=== PATIENT | female | born 1965 | race Caucasian/White ===

== ENCOUNTER 2016-11-10 18:03 | Emergency (ER) | payer MEDICAID ==
[~2016-11-10] VITALS: Ht 160 cm; Wt 81.5 kg
[~2016-11-10 18:03] MED LIST: BACI28.34 TOP; NITR-58 PO; PHEN-537 PO
[2016-11-10 18:09] VITALS: Ht 160 cm; Wt 81.5 kg
[2016-11-10 21:31] LABS: URINE BLOOD (Dip) POC Trace-intact (NEGATIVE)
--- NOTE | 2016-11-10 21:41 | ERD ---
ER Documentation Chief Complaint Date/Time DATE: 11/10/16 TIME: 21:39 Chief Complaint RIGHT LOWER ABDOMINAL PAIN RADIATING TO RIGHT LEG X 3 DAYS HPI Patient is a 51-year-old female who presents with gradual onset, constant right lower quadrant abdominal pain radiating to the right flank for 3 months. She states for the last 3 days it has been more severe, and she has had subjective fever. She denies vomiting, diarrhea. She states that she has intermittent constipation. She states that the pain radiates down to her right leg, but has known leg weakness or numbness. No dysuria or hematuria. No vaginal discharge. ROS All systems reviewed and are negative except as per history of present illness. Medications Home Meds Active Scripts Polyethylene Glycol* (Miralax*) 17 Gm Powd.pack, 17 GM PO DAILY, #7 Prov:FERNANDO SAPP MD 11/11/16 Tramadol HCl (Tramadol HCl) 50 Mg Tablet, 50 MG PO Q6, #20 TAB Prov:FERNANDO SAPP MD 11/11/16 Discontinued Scripts Phenazopyridine Hcl* (Pyridium*) 100 Mg Tab, 100 MG PO TID Y for PAIN, #8 TAB Prov:JW TOVAR PA-C 11/01/15 Nitrofurantoin Monohyd Macrocr* (Macrobid*) 100 Mg Capsr, 100 MG PO BID for 7 Days, CAP Prov:JW TOVAR PA-C 11/01/15 Bacitracin* (Bacitracin Zinc Oint*) 28.35 Gm Oint, 1 APPLIC TOP BID, #30 TUB APPLI TO Prov:AUDIE HUNTER PA-C 07/25/15 Nitrofurantoin Monohyd Macrocr* (Macrobid*) 100 Mg Capsr, 100 MG PO BID for 7 Days, CAP Prov:AUDIE HUNTER PA-C 07/25/15 Allergies Allergies: Coded Allergies: No Known Allergy (Unverified , 11/10/16) PMhx/Soc Past medical history: None Past surgical history: Hysterectomy Social history: Denies tobacco or alcohol. History of Surgery: Yes (abdominal hysterectomy) Anesthesia Reaction: No Hx Neurological Disorder: No Hx Respiratory Disorders: No Hx Cardiac Disorders: No Hx Psychiatric Problems: No Hx Miscellaneous Medical Probl: Yes (gastritis) Hx Alcohol Use: No Hx Substance Use: No Hx Tobacco Use: No Smoking Status: Never smoker FmHx Family History: No coronary disease, No diabetes Physical Exam Vitals Vital Signs Date Time Temp Pulse Resp B/P Pulse Ox O2 Delivery O2 Flow Rate FiO2 11/10/16 18:09 98.9 91 16 141/67 100 Physical Exam Const: Alert, no acute distress Head: Atraumatic Eyes: Normal Conjunctiva, no pallor, no icterus ENT: Normal External Ears, Nose and Mouth. Mucous membranes moist Neck: Full range of motion..~ No meningismus. Resp: Clear to auscultation bilaterally, no wheezes, no rales Cardio: Regular rate and rhythm, no murmurs Abd: Soft, mild right lower quadrant tenderness, no guarding, no rebound, no distention Skin: No petechiae or rashes Back: No midline or flank tenderness, no CVA tenderness Ext: No cyanosis, or edema, no pain with ranging of right hip Neur: Awake and alert, cranial nerves II through XII intact bilaterally, strength and sensation full in 4 extremities Psych: Normal Mood and Affect Result Diagram: 11/10/16212511/10/162125 Results 24 hrs Laboratory Tests Test 11/10/16 21:20 11/10/16 21:26 11/10/16 21:33 Urine Color LT. YELLOW Urine Clarity CLEAR Urine pH 6.0 Urine Specific [place] <1.005 Urine Ketones NEGATIVE Urine Nitrite NEGATIVE Urine Bilirubin NEGATIVE Urine Urobilinogen 0.2 E.U./dL Urine Leukocyte Esterase NEGATIVE Urine Hemoglobin NEGATIVE Urine Glucose NEGATIVE% Urine Total Protein NEGATIVE White Blood Count 9.510^3/ul Red Blood Count 4.6910^6/ul Hemoglobin 13.3g/dl Hematocrit 40.9% Mean Corpuscular Volume 87.2fl Mean Corpuscular Hemoglobin 28.4pg Mean Corpuscular Hemoglobin Concent 32.5g/dl Red Cell Distribution Width 14.2% Platelet Count 98734^3/UL Mean Platelet Volume 11.8fl Neutrophils % 45.5% Lymphocytes % 42.3% Monocytes % 9.1% Eosinophils % 2.6% Basophils % 0.2% Nucleated Red Blood Cells % 0.0/100WBC Neutrophils # 4.310^3/ul Lymphocytes # 4.010^3/ul Monocytes # 0.910^3/ul Eosinophils # 0.310^3/ul Basophils # 0.010^3/ul Nucleated Red Blood Cells # 0.010^3/ul Sodium Level 140mmol/L Potassium Level 3.8mmol/L Chloride Level 102mmol/L Carbon Dioxide Level 25mmol/L Anion Gap 17 Blood Urea Nitrogen 15mg/dl Creatinine 0.72mg/dl Glucose Level 105mg/dl Calcium Level 10.0mg/dl Total Bilirubin 0.1mg/dl Direct Bilirubin 0.00mg/dl Indirect Bilirubin 0.1mg/dl Aspartate Amino Transf (AST/SGOT) 23IU/L Alanine Aminotransferase (ALT/SGPT) 33IU/L Alkaline Phosphatase 55IU/L Total Protein 8.8g/dl Albumin 4.7g/dl Globulin 4.10g/dl Albumin/Globulin Ratio 1.14 Lipase 104U/L Bedside Urine pH (LAB) 7.0 Bedside Urine Protein (LAB) Negative Bedside Urine Glucose (UA) Negative Bedside Urine Ketones (LAB) Negative Bedside Urine Blood Trace-intact Bedside Urine Nitrite (LAB) Negative Bedside Urine Leukocyte Esterase (L Negative Current Medications Medications (Trade) Dose Ordered Sig/Clay Route PRN Reason Start Time Stop Time Status Last Admin Dose Admin Morphine Sulfate (morphine) 4 mg ONCE STAT IV 11/10/16 22:15 11/10/16 22:16 DC 11/10/16 22:20 Ondansetron HCl (Zofran Inj) 4 mg ONCE STAT IV 11/10/16 22:15 11/10/16 22:16 DC 11/10/16 22:20 IV Flush 10 ml 10 ml STK-MED ONCE .ROUTE 11/10/16 22:37 11/10/16 22:38 DC 11/10/16 22:49 Sodium Chloride (NS) 100 ml @ ud STK-MED ONCE .ROUTE 11/10/16 22:37 11/10/16 22:38 DC 11/10/16 22:49 Iohexol (Omnipaque 300mg/ ml) 150 ml STK-MED ONCE .ROUTE 11/10/16 22:37 11/10/16 22:38 DC 11/10/16 22:49 Procedures/MDM MDM: Patient is a 51-year-old female who presents with 3 weeks of intermittent right lower quadrant pain radiating to the right flank and right lower extremity. She has a relatively benign exam, normal labs and UA. A CT scan was performed given chronicity of symptoms for now with exacerbation and location in the right lower quadrant. CT scan shows no evidence of appendicitis , kidney stone, or other significant pathology. He does incidentally note bilateral ovarian cysts. The patient is status post hysterectomy. I have low suspicion for intermittent ovarian torsion, and the patient does not have fertility concern given prior hysterectomy. Patient does report intermittent constipation, and I cannot exclude functional abdominal pain. I will discharge her with prescription for tramadol for any severe episodes of pain, as well as MiraLAX for intermittent constipation. I have advised her of her diagnosis of ovarian cysts. I advised her to follow-up with her PMD in the next 2-3 days of her pain is not improving. Advised to return to the ER if she experiences any fever, vomiting or worsening pain. Departure Diagnosis: Primary Impression: Abdominal pain Abdominal location: right lower quadrant Qualified Code: R10.31 - Right lower quadrant abdominal pain Additional Impression: Ovarian cyst Laterality: bilateral Qualified Code: N83.201 - Cysts of both ovaries Condition: Stable FERNANDO SAPP MD November 10, 2016 21:41
[2016-11-10 21:44] LABS: ADD SCAN DIFF NO
[2016-11-10 21:48] LABS: BASOPHILS % 0.2 % (0.0-2.0); EOSINOPHILS # 0.3 10^3/ul (0.0-0.5); EOSINOPHILS % 2.6 % (0.0-7.0); HEMATOCRIT 40.9 % (37.0-47.0); HEMOGLOBIN 13.3 g/dl (12.0-16.0); LYMPHOCYTES % 42.3 % (15.0-51.0); MEAN CORPUSCULAR HEMOGLOBIN 28.4 pg (29.0-33.0); MEAN CORPUSCULAR HGB CONC 32.5 g/dl (32.0-37.0); MEAN CORPUSCULAR VOLUME 87.2 fl (82.0-101.0); MEAN PLATELET VOLUME 11.8 fl (7.4-10.4); MONOCYTE # 0.9 10^3/ul (0.3-0.9); MONOCYTES % 9.1 % (0.0-11.0); NEUTROPHIL # 4.3 10^3/ul (1.6-7.5); NEUTROPHILS % 45.5 % (39.0-77.0); PLATELET COUNT 205 10^3/UL (140-415); RED BLOOD COUNT 4.69 10^6/ul (4.20-5.40); RED CELL DISTRIBUTION WIDTH 14.2 % (11.5-14.5); WHITE BLOOD COUNT 9.5 10^3/ul (4.8-10.8)
[2016-11-10 22:11] LABS: ALBUMIN 4.7 g/dl (3.3-4.9)
[2016-11-10 22:12] LABS: POTASSIUM 3.8 mmol/L (3.5-5.1)
[2016-11-10 22:14] LABS: CREATININE 0.72 mg/dl (0.44-1.00)
[2016-11-10 22:15] LABS: ALBUMIN/GLOBULIN RATIO 1.14; BILIRUBIN,INDIRECT 0.1 mg/dl (0-1.1); BILIRUBIN,TOTAL 0.1 mg/dl (0.2-1.3); TOTAL PROTEIN 8.8 g/dl (6.1-8.1)
[2016-11-10] MEDS ORDERED: ONDANSETRON 4 MG INJ IV STA (22:15)
[2016-11-10] MEDS ORDERED: morphine 4 MG/ML VIAL IV STA (22:15)
[2016-11-10] MEDS ORDERED: SOD CHLORIDE 0.9% 100 ML ONE (22:37)
[2016-11-10] MEDS ORDERED: IOHEXOL 300MG/ML 150 ML BTL ONE (22:37)
--- NOTE | 2016-11-10 23:25 | RADRPT ---
PROCEDURE: CT Abdomen and pelvis with contrast. CLINICAL INDICATION: Abdominal pain. TECHNIQUE: CT scan of the abdomen and pelvis with contrast was performed on a multi-detector high -resolution CT scanner. The patient was scanned following the uncomplicated administration of 90 cc of Omnipaque 300 intravenous contrast. Coronal and sagittal reformatted images were obtained from the axial source images. Images were reviewed on a high-resolution PACS workstation. One or more of the following dose reduction techniques were used: - Automated exposure control. - Adjustment of the mA and/or kV according to patient size. - Use of iterative reconstruction technique. Exam CTD/vol = 15.65 mGy. Total exam DLP = 797.37 mGy-cm. COMPARISON: 02/08/2013. FINDINGS: Evaluation of the lung bases demonstrates no pleural or parenchymal disease. Abdomen: The liver is normal in size. There is no focal mass or dilatation of the biliary tree. T he gallbladder is not distended. The spleen, pancreas and bilateral adrenal glands are within shyam l limits. Bilateral kidneys are normal in size with symmetric enhancement. There is no focal mass, hydronephrosis or hydroureter. There is no retroperitoneal adenopathy. The abdominal aorta is of normal caliber. There is a small umbilical hernia containing fat. There is no abnormal bowel wall thickening or dis tension. There is no bowel obstruction or free air. A normal appendix is identified. There is no diverticulosis or diverticulitis. There is no ascites. Pelvis: The bladder is unremarkable. The uterus is absent. There are multiple left adnexal cysts with the largest measuring 2.8 x 2.2 cm. There are multiple right adnexal cysts with the largest me asuring 1.9 x 2.4 cm. There is no significant pelvic adenopathy or free fluid. Evaluation of the osseous structures demonstrates no suspicious lytic or blastic lesion. IMPRESSION: Bilateral adnexal cysts measuring up to 2.8 cm. Small umbilical hernia containing fat. Otherwise no acute abnormality identified within the abdomen and pelvis. .Arvind Simpson MD, MD Date Time Electronically viewed and signed by .Arvind Simpson MD, MD on 11/10/2016 23:25 .T/
[2016-11-10 23:26] LABS: URINE BILIRUBIN (Dip) NEGATIVE (NEGATIVE); URINE BLOOD (Dip) NEGATIVE (NEGATIVE); URINE COLOR LT. YELLOW (YELLOW); URINE GLUCOSE (Dip) NEGATIVE (NEGATIVE); URINE KETONES (Dip) NEGATIVE (NEGATIVE); URINE NITRITE (Dip) NEGATIVE (NEGATIVE); URINE TOTAL PROTEIN (Dip) NEGATIVE (NEGATIVE); URINE UROBILINOGEN (Dip) 0.2 E.U./dL (0.1-1.0)
[2016-11-10 23:27] LABS: ADD UMIC NO; URINE LEUKOCYTE ESTERASE (Dip) NEGATIVE (NEGATIVE)
[2016-11-11] MEDS ORDERED: POLY17PO6 PO (00:04)
[2016-11-11] MEDS ORDERED: TRAM50TA2 PO (00:04)
[2016-11-11 00:16] VITALS: BP 122/71; PULSE 64; RESP 17; TEMP 98.4
== END 2016-11-11 00:16 | disposition home or self-care (01) ==
LOC: E/R 18:03
DX: R10.31 Right lower quadrant pain (principal); N83.201 Unspecified ovarian cyst, right side; N83.202 Unspecified ovarian cyst, left side
CPT/HCPCS: 74177; 80053; 81003; 83690; 85025; J2270; J2405; Q9967; Z7610

== ENCOUNTER 2016-12-17 20:24 | Emergency (ER) | payer MEDICAID ==
[~2016-12-17] VITALS: Wt 80.0 kg
[~2016-12-17 20:24] MED LIST changes: -BACI28.34 TOP; -NITR-58 PO; -PHEN-537 PO; +POLY17PO6 PO; +TRAM50TA2 PO
--- NOTE | 2016-12-17 22:03 | ERA ---
ER Documentation Chief Complaint Date/Time DATE: 12/17/16 TIME: 21:58 Chief Complaint nausea/generalize body aches/feels hot x 1 month HPI This is a 51-year-old female presenting with a history of anxiety and current anxiety attack. Patient denies wanting to harm herself or others. Patient states that she has been nauseous and she has had some body aches that has been worsening over the past month. Describes the body aches as weakness and heaviness. Patient has no other symptoms at this time. Patient describes palpitations that have been occurring throughout the month occurring approximately once a week. Denies chest pain, shortness of breath, hematuria, dysuria, headache, neck stiffness. Patient has had similar symptoms in the past and has been diagnosed with anxiety/panic disorder. Patient has no other complaints or symptoms at this time. Nursing notes and previous documents have been reviewed and are consistent with the patient's history. ROS All systems reviewed and are negative except as per history of present illness. Medications Home Meds Active Scripts Polyethylene Glycol* (Miralax*) 17 Gm Powd.pack, 17 GM PO DAILY, #7 Prov:FERNANDO SAPP MD 11/11/16 Tramadol HCl (Tramadol HCl) 50 Mg Tablet, 50 MG PO Q6, #20 TAB Prov:FERNANDO SAPP MD 11/11/16 Allergies Allergies: Coded Allergies: No Known Allergy (Unverified , 12/17/16) PMhx/Soc History of Surgery: Yes (abdominal hysterectomy) Anesthesia Reaction: No Hx Neurological Disorder: No Hx Respiratory Disorders: No Hx Cardiac Disorders: No Hx Psychiatric Problems: No Hx Miscellaneous Medical Probl: Yes (gastritis, ovarian cyst) Hx Alcohol Use: No Hx Substance Use: No Hx Tobacco Use: No Smoking Status: Never smoker Physical Exam Vitals Vital Signs Date Time Temp Pulse Resp B/P Pulse Ox O2 Delivery O2 Flow Rate FiO2 12/17/16 20:29 98.3 84 20 138/86 98 Physical Exam Const: Healthy-appearing. Well-nourished. Well-developed. Israeli- speaking only. No acute distress. Head: Normocephalic, Atraumatic. No sinus tenderness. Eyes: Non-injected; No scleral erythema, discharge or foreign body. EOMI and NIK bilaterally. Ears: Normal External Ears, EACs clear, TM normal bilaterally without erythema. Nose: Normal nose without discharge, septal deviation, or sinus tenderness. Oral: No oral edema visualized. Mucous membranes moist and pink. Neck: No cervical lymphadenopathy, masses or goiter palpated. Full range of motion. Supple. Trachea midline. ~ No meningismus. Pulm: Good air movement in upper and lower respiratory tracts. No dyspnea, stridor, tripoding or drooling. Clear to auscultation bilaterally. Percussion unremarkable in all lung siu bilaterally. Cardio: Regular rate and rhythm; No murmurs, gallops or rubs auscultated. No JVD grossly observed. Radial and posterior tibial pulses 2+ bilaterally. No cyanosis. Capillary refill less than 2 seconds. Abd: Soft, non tender, non distended. No guarding, masses. Normal bowel sounds. No McBurney's point tenderness. MS: Normal motor strength, normal tone with gross examination. Skin: No petechiae or rashes. No ulcer, induration, jaundice. Good turgor. Back: No midline, flank or CVA tenderness. Ext: No cyanosis, or edema. Normal movement of all extremities grossly observed. Neur: Awake, alert and oriented x3. Neurovascularly intact bilaterally. Psych: Active and alert. Normal Mood and Affect. Oriented x3. Procedures/MDM This is a 51-year-old female presenting with a chief complaint of body weakness. Patient speaks Israeli and Emmanuelle the RN was the bobbin painter. Patient signs and symptoms are consistent with a panic attack/anxiety disorder. Due to history of palpitations and weakness/heaviness description of fatigue and EKG was taken and read by me. EKG results were the following normal sinus rhythm, normal axis, no T-wave abnormalities no ST-T wave elevations or depressions. EKG was read by my attending Dr. Cunha as unremarkable, normal sinus rhythm. I have no suspicion at this time for the patient to harm herself or others. Patient's current status is stable with stable vitals and her current condition is appropriate for discharge. Patient will be discharged with discharge instructions return precautions. Have spoken with the patient with the help of the bobbin painter and she has verbally agreed that she understands her current condition and management. Departure Diagnosis: Primary Impression: Anxiety Additional Impression: Tension headache Condition: Stable Patient Instructions: Your Body's Response to Anxiety Referrals: JOE,AGUILAR S (PCP) Additional Instructions: Follow up with your PCP within the next 1-3 days for a more thorough evaluation and a possible referral to a specialist. Return the the emergency department immediately if symptoms worsen or change. If you have any questions regarding medications, ask your pharmacist or us before you leave. If any adverse reactions occur while taking your medications, discontinue the treatment and return to the emergency department immediately. Take your medications as directed, and complete the entire course of treatment. GUMARO LINDA PA-C Dec 17, 2016 22:03
== END 2016-12-17 22:05 | disposition home or self-care (01) ==
LOC: FTE 20:24
DX: F41.9 Anxiety disorder, unspecified (principal); G44.209 Tension-type headache, unspecified, not intractable; R00.2 Palpitations
CPT/HCPCS: 93005; Z7502; 99283

== ENCOUNTER 2017-06-20 02:32 | Emergency (ER) | payer MEDICAID ==
[~2017-06-20] VITALS: Ht 165.1 cm; Wt 78.8 kg
[2017-06-20 02:36] VITALS: Ht 165.1 cm; Wt 78.8 kg
[2017-06-20] MEDS ORDERED: IPRATROPIUM (NEB) 0.5 MG/2.5 ML AMP NEB STA (03:08)
[2017-06-20] MEDS ORDERED: ALBUTEROL 0.083% (NEB) 2.5 MG/3 ML AMP NEB STA (03:08)
--- NOTE | 2017-06-20 03:29 | ERD ---
ER Documentation Chief Complaint Chief Complaint coughing & SOB x 2 days HPI 51-year-old female presents here to emergency department for complaints of cough shortness of breath and wheezing for 2 days. Patient has been having dry cough, does not cough up any phlegm or blood. Patient does not have any fever or chills. Patient does not have any sick contacts. Patient does not have any sore throat or ear pain. Patient does not have any sick contacts. She did not take any medications to help with symptoms. ROS All systems reviewed and are negative except as per history of present illness. Medications Home Meds Active Scripts Polyethylene Glycol* (Miralax*) 17 Gm Powd.pack, 17 GM PO DAILY, #7 Prov:FERNANDO SAPP MD 11/11/16 Tramadol HCl (Tramadol HCl) 50 Mg Tablet, 50 MG PO Q6, #20 TAB Prov:FERNANDO SAPP MD 11/11/16 Allergies Allergies: Coded Allergies: No Known Allergy (Unverified , 12/17/16) PMhx/Soc History of Surgery: Yes (abdominal hysterectomy) Anesthesia Reaction: No Hx Neurological Disorder: No Hx Respiratory Disorders: No Hx Cardiac Disorders: No Hx Psychiatric Problems: No Hx Miscellaneous Medical Probl: Yes (gastritis, ovarian cyst) Hx Alcohol Use: No Hx Substance Use: No Hx Tobacco Use: No FmHx Family History: No coronary disease, No diabetes, No other Physical Exam Vitals Vital Signs Date Time Temp Pulse Resp B/P Pulse Ox O2 Delivery O2 Flow Rate FiO2 06/20/17 04:55 97.4 06/20/17 03:22 113 22 97 21 06/20/17 02:36 99.6 102 22 110/63 99 Physical Exam GENERAL: The patient is well developed and appropriate for usual state of health, in no apparent distress. CHEST: Wheezing noted bilateral lungs . There are no rales, or rhonchi. HEART: Regular rate and rhythm. No murmurs, clicks, rubs or gallops. No S3 or S4. ABDOMEN: Soft, nontender and nondistended. Good bowel sounds. No rebound or guarding. No gross peritonitis. No gross organomegaly or masses. No Batista sign or McBurney point tenderness. BACK: No midline or flank tenderness. EXTREMITIES: Equal pulses bilaterally. There is no peripheral clubbing, cyanosis or edema. No focal swelling or erythema. Full range of motion. Grossly neurovascularly intact. NEURO: Alert and oriented. Cranial nerves 2-12 intact. Motor strength in all 4 extremities with 5/5 strength. Sensation grossly intact. Normal speech and gait. SKIN: There is no apparent rash or petechia. The skin is warm and dry. HEMATOLOGIC AND LYMPHATIC: There is no evidence of excessive bruising or lymphedema. No gross cervical, axillary, or inguinal lymphadenopathy. Results 24 hrs Current Medications Medications (Trade) Dose Ordered Sig/Clay Route PRN Reason Start Time Stop Time Status Last Admin Dose Admin Albuterol (Proventil 0.083% (Neb)) 5 mg ONCE STAT NEB 06/20/17 03:08 06/20/17 03:09 DC 06/20/17 03:21 Ipratropium [place] (Atrovent 0.02% (Neb)) 0.5 mg ONCE STAT NEB 06/20/17 03:08 06/20/17 03:09 DC 06/20/17 03:21 Guaifenesin/ Codeine Phosphate (Robitussin Ac Liquid Cup) 10 ml ONCE ONCE PO 06/20/17 03:30 06/20/17 03:31 DC 06/20/17 04:02 Breathing treatment of albuterol and Atrovent guaifenesin with codeine was given here in emergency department, after treatment, patient's lungs sounds are clear and patient's oxygenation is better. Patient verbalized feeling much better. PROCEDURE: XR Chest. CLINICAL INDICATION: Asthma exacerbation TECHNIQUE: AP Portable chest. COMPARISON: CR CHEST 10/21/2013 FINDINGS: The cardiomediastinal silhouette is normal. The aorta is normal. No focal consolidation, pleural effusion or pneumothorax is seen. The osseous structures are intact. IMPRESSION: No radiographic evidence of acute cardiopulmonary disease. Physician Mayur Date Time Electronically viewed and signed by Physician Mayur on 06/20/2017 04: 38 CS/ CC: DERICK ALLEN TIRE BUSTER Procedures/MDM Medical Decision Making: Patient symptoms are most likely consistent with acute bronchitis, which viral in origin. There is low suspicion for Pneumonia at this time since patients lungs sounds are clear, patient O2 saturation is normal and patient doesnt show any respiratory distress. Patients chest xray doesnt show infiltrates or any other cardiopulmonary emergencies at this time. There is low suspicion for other cardiopulmonary emergencies at this time such as CHF, Pulmonary Embolism, Pneumothorax, Aortic Aneurysm or any other cardiopulmonary emergencies at this time. There is low suspicion for sepsis. Patient appears well and is hemodynamically stable. Patient does not have any fever. Disposition: Home. Condition: Stable Prescriptions: Albuterol, guaifenesin with codeine Zyrtec ibuprofen Instructions: Patient is advised to take medications as prescribed. Patient is advised to rest. Patient advised to increase fluid intake, do humidifier at home and if possible, do salt water gargles. Patient is advised that if symptoms are worse, shortness of breath, uncontrolled fever, stridor, vomiting, worst signs and symptoms to return to emergency department immediately. Otherwise, patient is advised to follow up with primary doctor in 5-7 days. Disclaimer: Inadvertent spelling and grammatical errors are likely due to EHR/ dictation software use and do not reflect on the overall quality of patient care. Also, please note that the electronic time recorded on this note does not necessarily reflect the actual time of the patient encounter. Departure Diagnosis: Primary Impression: Acute bronchitis Bronchitis organism: unspecified organism Qualified Code: J20.9 - Acute bronchitis, unspecified organism Condition: Stable Patient Instructions: Bronchitis With Wheezing (Adult) Additional Instructions: Patient is advised to take medications as prescribed. Patient is advised to rest. Patient advised to increase fluid intake, do humidifier at home and if possible, do salt water gargles. Patient is advised that if symptoms are worse, shortness of breath, uncontrolled fever, stridor, vomiting, worst signs and symptoms to return to emergency department immediately. Otherwise, patient is advised to follow up with primary doctor in 5-7 days. DERICK ALLEN NP Jun 20, 2017 03:29
[2017-06-20] MEDS ORDERED: GUAIFENESIN/CODEINE 5ML CUP PO ONE (03:30)
--- NOTE | 2017-06-20 04:38 | RADRPT ---
PROCEDURE: XR Chest. CLINICAL INDICATION: Asthma exacerbation TECHNIQUE: AP Portable chest. COMPARISON: CR CHEST 10/21/2013 FINDINGS: The cardiomediastinal silhouette is normal. The aorta is normal. No focal consolidation, pleural eff usion or pneumothorax is seen. The osseous structures are intact. IMPRESSION: No radiographic evidence of acute cardiopulmonary disease. Physician Mayur Date Time Electronically viewed and signed by Huong Pena Physician on 06/20/2017 04:38 CS/
[2017-06-20 04:55] VITALS: TEMP 97.4
[2017-06-20] MEDS ORDERED: ALBU8.5H3 INH (05:20)
[2017-06-20] MEDS ORDERED: CETI10CA PO (05:20)
[2017-06-20] MEDS ORDERED: GUAI473L22 PO (05:20)
== END 2017-06-20 05:30 | disposition home or self-care (01) ==
LOC: FTE 02:32
DX: J20.9 Acute bronchitis, unspecified (principal)
CPT/HCPCS: 71010; 94664; Z7502; Z7610

== ENCOUNTER 2017-06-23 15:07 | Emergency (ER) | payer MEDICAID ==
[~2017-06-23] VITALS: Ht 160 cm; Wt 79.8 kg
[~2017-06-23 15:07] MED LIST changes: +ALBU8.5H3 INH; +CETI10CA PO; +GUAI473L22 PO
[2017-06-23 15:12] VITALS: Ht 160 cm; Wt 79.8 kg
[2017-06-23] MEDS ORDERED: IBUPROFEN 600 MG TAB PO ONE (17:00)
[2017-06-23] MEDS ORDERED: FAMOTIDINE 20 MG TAB PO ONE (18:00)
--- NOTE | 2017-06-23 18:20 | RADRPT ---
PROCEDURE: X-ray Chest. CLINICAL INDICATION: Cough and dyspnea. TECHNIQUE: Single view chest x-ray. COMPARISON: Exam dated 06/20/2017. FINDINGS: The cardiomediastinal silhouette is within normal limits. The lungs are clear without f ocal consolidation, effusion, or pneumothorax. There are no acute osseous abnormalities. IMPRESSION: 1. No acute cardiopulmonary abnormality. RPTAT: HLBP .Francesco Jolly MD, MD Date Time Electronically viewed and signed by .Francesco Jolly MD, on 06/23/2017 18:20 .P/
[2017-06-23] MEDS ORDERED: OSLT75C PO (18:26)
[2017-06-23] MEDS ORDERED: IBUP-1542 PO (18:26)
[2017-06-23] MEDS ORDERED: TYL500 PO (18:27)
--- NOTE | 2017-06-23 18:36 | ERD ---
ER Documentation Chief Complaint Chief Complaint HERE ON DX BRONCHITIS, STILL NOT FEELING WELL HPI This is a 51-year-old female presents to the ER with continued cough, fever, body aches, headache since Wednesday. Was seen here on Wednesday and diagnosed with bronchitis, she has been taking medication prescribed however she has not gotten better. Patient does admit to shortness of breath secondary to coughing. She denies any chest pain. Patient started experiencing nausea today. She denies any vomiting or diarrhea. Headache is throbbing in quality and located all over her head, this is not the worst headache of her life. She did not get her flu shot. ROS 12 point review of systems was done, all negative except per HPI. Medications Home Meds Active Scripts Acetaminophen* (Tylenol*) 500 Mg Tab, 1000 MG PO Q8 Y for PAIN AND OR ELEVATED TEMP for 3 Days, TAB Prov:JAVIER CONDE 06/23/17 Ibuprofen* (Ibuprofen*) 600 Mg Tablet, 600 MG PO Q6 for 3 Days, TAB Prov:JAVIER CONDE 06/23/17 Oseltamivir Phosphate* (Tamiflu*) 75 Mg Capsule, 75 MG PO BID for 5 Days, CAP Prov:JAVIER CONDE 06/23/17 Cetirizine Hcl* (Zyrtec*) 10 Mg Capsule, 10 MG PO DAILY, #30 TAB.CHEW Prov:DERICK ALLEN NP 06/20/17 Cetirizine Hcl* (Zyrtec*) 10 Mg Capsule, 10 MG PO DAILY, #30 TAB.CHEW Prov:DERICK ALLEN NP 06/20/17 Guaifenesin-Codeine Phosphate* (Guaifenesin* AC Cough Syrup) 473 Ml Liquid, 10 ML PO Q4H Y for COUGH, #120 ML Prov:DERICK ALLEN NP 06/20/17 Albuterol Sulfate* (Proair HFA*) 8.5 Gm Hfa.aer.ad, 2 PUFF INH Q4H Y for WHEEZING AND SOB, #1 INHALER Prov:DERICK ALLEN NP 06/20/17 Polyethylene Glycol* (Miralax*) 17 Gm Powd.pack, 17 GM PO DAILY, #7 Prov:FERNANDO SAPP MD 11/11/16 Tramadol HCl (Tramadol HCl) 50 Mg Tablet, 50 MG PO Q6, #20 TAB Prov:FERNANDO SAPP MD 11/11/16 Allergies Allergies: Coded Allergies: No Known Allergy (Unverified , 12/17/16) PMhx/Soc History of Surgery: Yes (abdominal hysterectomy) Anesthesia Reaction: No Hx Neurological Disorder: No Hx Respiratory Disorders: No Hx Cardiac Disorders: No Hx Psychiatric Problems: No Hx Miscellaneous Medical Probl: Yes (gastritis, ovarian cyst) Hx Alcohol Use: No Hx Substance Use: No Hx Tobacco Use: No Physical Exam Vitals Vital Signs Date Time Temp Pulse Resp B/P Pulse Ox O2 Delivery O2 Flow Rate FiO2 06/23/17 15:12 99.0 99 24 122/72 99 Physical Exam GENERAL: The patient is well-developed, well-nourished, in no acute distress. NECK: Cervical spine is non tender with no step off. Supple, no nuchal rigidity HEENT: Atraumatic. Pupils equal, round and reactive to light. Extraocular muscles are grossly intact. Conjunctivae pink, no discharge. Bilateral tympanic membranes are clear with no evidence of erythema, effusion or dulling of the light reflex. Tonsilar erythema with no exudates or uvular deviation. Clear rhinorrhea. RESPIRATORY: Clear to auscultation bilaterally. There are no rales, wheezes or rhonchi. HEART: Regular rate and rhythm. No murmurs, clicks, rubs or gallops. EXTREMITIES: No clubbing or cyanosis. Full range of motion. Grossly neurovascularly intact. NEUROLOGIC: Alert and oriented. Cranial nerves II through XII are intact. SKIN: There is no rash. The skin is warm and dry. Results 24 hrs Current Medications Medications (Trade) Dose Ordered Sig/Clay Route PRN Reason Start Time Stop Time Status Last Admin Dose Admin Ibuprofen (Motrin) 600 mg ONCE ONCE PO 06/23/17 17:00 06/23/17 17:01 DC 06/23/17 17:19 Famotidine (Pepcid) 20 mg ONCE ONCE PO 06/23/17 18:00 06/23/17 18:01 [place] [id number] Radiology Main Line: [phone] DIAGNOSTIC IMAGING REPORT Patient: AUDRA HENDRICKS : 1965 Age: 51 Sex: F MR #: [id number] DOS: 06/23/17 0000 Ordering MD: JAVIER CONDE PA-C Location: [facility] Room/Bed: PROCEDURE: X-ray Chest. CLINICAL INDICATION: Cough and dyspnea. TECHNIQUE: Single view chest x-ray. COMPARISON: Exam dated 06/20/2017. FINDINGS: The cardiomediastinal silhouette is within normal limits. The lungs are clear without focal consolidation, effusion, or pneumothorax. There are no acute osseous abnormalities. IMPRESSION: 1. No acute cardiopulmonary abnormality. RPTAT: HLBP .Francesco Jolly MD, MD Date Time Electronically viewed and signed by .Francesco Jolly MD, MD on 06/23/2017 18:20 .P/ CC: JAVIER CONDE Procedures/MDM This is a 51-year-old female presents to the ER with continued cough, body aches , fever, headache. Patient did test positive for the influenza virus is likely the etiology of her symptoms. There is no evidence of pneumonia on x-ray. Patient is otherwise healthy and is stable for outpatient follow-up. She will be given Tamiflu ibuprofen and Tylenol. She was told to continue with over-the- counter cough medication and albuterol inhaler that was given to her during the last visit. She is to follow-up with her primary care doctor within 1-2 days return to ER sooner if symptoms worsen. My medical decision making shared with the patient she understands and agrees with plan. Departure Diagnosis: Primary Impression: Influenza Condition: Stable Patient Instructions: Influenza (Adult) Additional Instructions: Llame al doctor MAANA y yair tanner DARI PARA DENTRO DE 1-2 LAN.Dgale a la secretaria que nosotros le instruimos hacer esta dari.Avise o llame si martinez condicin se empeora antes de la dari. Regresa aqui si peor o no mejor. JAVIER CONDE Jun 23, 2017 18:36
== END 2017-06-23 18:40 | disposition home or self-care (01) ==
LOC: FTE 15:07
DX: J10.1 Influenza due to other identified influenza virus with other respiratory manifestations (principal)
CPT/HCPCS: 71010; 87400; Z7502; Z7610

== ENCOUNTER 2018-06-04 14:19 | Emergency (ER) | END 2018-06-04 15:28 | disposition home or self-care (01) ==

== ENCOUNTER 2018-10-13 15:40 | Emergency (ER) | payer MEDICAID ==
[~2018-10-13] VITALS: Ht 61 cm; Wt 72.6 kg
[~2018-10-13 15:40] MED LIST changes: +ACET500C5 PO; -ALBU8.5H3 INH; +ALBU8.5H8 INH; +DOXY100T21 PO; +IBUP-1542 PO; +OSEL75CA23 PO; +TYL500 PO
[2018-10-13 15:48] VITALS: Ht 61 cm; Wt 72.6 kg
[2018-10-13] MEDS ORDERED: KETOROLAC 60 MG INJ IM STA (18:19)
[2018-10-13] MEDS ORDERED: DEXAMETHASONE 10 MG/ML 1 ML INJ IM ONE (18:30)
[2018-10-13] MEDS ORDERED: ACETAMINOPHEN 500 MG TAB PO STA (18:36)
[2018-10-13] MEDS ORDERED: PRED20TA PO (18:37)
[2018-10-13] MEDS ORDERED: NAPR-985 PO (18:37)
[2018-10-13] MEDS ORDERED: ACET500C5 PO (18:37)
[2018-10-13] MEDS ORDERED: IBUPROFEN 600 MG TAB PO ONE (19:00)
[2018-10-13 19:08] VITALS: BP 138/78; PULSE 75; RESP 18
--- NOTE | 2018-10-14 09:40 | ERD ---
ER Documentation Chief Complaint Chief Complaint RT ARM SHOULDER AND BACK PAIN HPI History of Present Illness: 53-year-old female with no past medical history coming in today with complaint of right shoulder and right upper arm pain that has been present for 4 days. Pain has been gradual onset. Patient reports full range of motion but with some pain associated with it. Patient reports that she has a bruise to her brachial area of the right arm but has unknown trauma. Patient denies back pain, decreased sensation to extremity. At home pharmacological/nonpharmacological treatment for symptoms: Denies Denies social concerns; Denies recent foreign travel ROS All systems reviewed and are negative except as per history of present illness. Medications Home Meds Active Scripts Prednisone* (Prednisone*) 20 Mg Tab, 40 MG PO WITH BREAKFAST for DECREASE INFLAMMATION for 5 Days, TAB Prov:ANAT DAI NP 10/13/18 Acetaminophen* (Tylophen*) 500 Mg Capsule, 2 CAP PO Q8H PRN for PAIN AND OR ELEVATED TEMP, #20 CAP Prov:ANAT DAI NP 10/13/18 Naproxen* (Naprosyn*) 500 Mg Tablet, 500 MG PO BID PRN for PAIN AND/OR INFLAMMATION, #30 TAB Prov:ANAT DAI NP 10/13/18 Acetaminophen* (Tylophen*) 500 Mg Capsule, 1 CAP PO Q6H PRN for PAIN AND OR ELEVATED TEMP, #15 CAP Prov:RONAL FRAIRE MD 06/04/18 Doxycycline Monohydrate* (Doxycycline Monohydrate*) 100 Mg Tablet, 100 MG PO BID for 7 Days, TAB Prov:RONAL FRAIRE MD 06/04/18 Acetaminophen* (Tylenol*) 500 Mg Tab, 1000 MG PO Q8 PRN for PAIN AND OR ELEVATED TEMP for 3 Days, TAB Prov:AMAYAJAVIER MAGALLON C 06/23/17 Ibuprofen* (Ibuprofen*) 600 Mg Tablet, 600 MG PO Q6 for 3 Days, TAB Prov:AMAYAJAVIER C 06/23/17 Oseltamivir Phosphate* (Tamiflu*) 75 Mg Capsule, 75 MG PO BID for 5 Days, CAP Prov:AMAYAJAVIER C 06/23/17 Cetirizine Hcl* (Zyrtec*) 10 Mg Capsule, 10 MG PO DAILY, #30 TAB.CHEW Prov:DERICK ALLEN NP 06/20/17 Cetirizine Hcl* (Zyrtec*) 10 Mg Capsule, 10 MG PO DAILY, #30 TAB.CHEW Prov:DERICK ALLEN NP 06/20/17 Guaifenesin-Codeine Phosphate* (Guaifenesin* AC Cough Syrup) 473 Ml Liquid, 10 ML PO Q4H PRN for COUGH, #120 ML Prov:DERICK ALLEN NP 06/20/17 Albuterol Sulfate* (Proair HFA*) 8.5 Gm Hfa.aer.ad, 2 PUFF INH Q4H PRN for WHEEZING AND SOB, #1 INHALER Prov:DERICK ALLEN NP 06/20/17 Polyethylene Glycol* (Miralax*) 17 Gm Powd.pack, 17 GM PO DAILY, #7 Prov:FERNANDO SAPP MD 11/11/16 Tramadol HCl (Tramadol HCl) 50 Mg Tablet, 50 MG PO Q6, #20 TAB Prov:FERNANDO SAPP MD 11/11/16 Allergies Allergies: Coded Allergies: No Known Allergy (Unverified , 12/17/16) PMhx/Soc History of Surgery: Yes (abdominal hysterectomy age 23) Anesthesia Reaction: No Hx Neurological Disorder: No Hx Respiratory Disorders: No Hx Cardiac Disorders: No Hx Psychiatric Problems: No Hx Miscellaneous Medical Probl: Yes (gastritis, ovarian cyst) Hx Alcohol Use: No Hx Substance Use: No Hx Tobacco Use: No Smoking Status: Never smoker FmHx Family History: No coronary disease Physical Exam Vitals Vital Signs Date Temp Pulse Resp B/P (MAP) Pulse Ox O2 O2 Flow FiO2 Time Delivery Rate 10/13/18 98.4 75 18 138/78 97 Room Air 19:08 (98) 10/13/18 97.6 87 16 152/77 98 15:48 (102) Physical Exam Const: No acute distress Head: Atraumatic Eyes: Normal Conjunctiva ENT: Normal External Ears, Nose and Mouth. Neck: Full range of motion. No meningismus. Resp: Clear to auscultation bilaterally Cardio: Regular rate and rhythm, no murmurs Abd: Soft, non tender, non distended. Normal bowel sounds Skin: No petechiae or rashes Back: No midline or flank tenderness Ext: No cyanosis, or edema. Tenderness to palpation on right shoulder, full flexion and extension of arm. 3 cm bruise noted to right brachial. Patient neurovascularly intact distally. 2+ pulses. Cap refill under 3 seconds. Neur: Awake and alert Psych: Normal Mood and Affect Results 24 hrs Current Medications Medications Dose Sig/Clay Start Time Status Last (Trade) Ordered Route PRN Stop Time Admin Dose Reason Admin Ketorolac 60 mg ONCE STAT 10/13/18 DC Tromethamine IM 18:19 (Toradol) 10/13/18 18:36 8 mg ONCE ONCE 10/13/18 DC Dexamethasone IM 18:30 (Decadron) 10/13/18 18:36 Ibuprofen 600 mg ONCE ONCE 10/13/18 DC 10/13/18 (Motrin) PO 19:00 18:39 10/13/18 19:01 1,000 mg ONCE STAT 10/13/18 DC 10/13/18 Acetaminophen PO 18:36 18:39 (Tylenol 10/13/18 18:37 Tab) Procedures/MDM ED course includes a thorough examination and history. Medications: Ibuprofen and acetaminophen Imaging: -- Labs: -- Low suspicion for life-threatening medical emergency. Otherwise healthy patient presenting with constellation of symptoms likely representing uncomplicated pain of right arm/contusion as characterized by history, physical exam findings. No respiratory distress, otherwise relatively well appearing and nontoxic. Patient educated on diagnoses, prescriptions, follow-up care, return precautions. Strict return precautions given for worsening condition; questions answered discharge. Disposition for discharge with followup in 2 days with PCP/clinic. Departure Diagnosis: Primary Impression: Pain of right arm Additional Impression: Contusion Encounter type: initial encounter Contusion area: upper arm Laterality: right Qualified Codes: S40.021A - Contusion of right upper arm, initial encounter Condition: Stable Patient Instructions: Contusion, Upper Extremity, Shoulder Contusion Referrals: COMMUNITY CLINICS YOU HAVE RECEIVED A MEDICAL SCREENING EXAM AND THE RESULTS INDICATE THAT YOU DO NOT HAVE A CONDITION THAT REQUIRES URGENT TREATMENT IN THE EMERGENCY DEPARTMENT. FURTHER EVALUATION AND TREATMENT OF YOUR CONDITION CAN WAIT UNTIL YOU ARE SEEN IN YOUR DOCTORS OFFICE WITHIN THE NEXT 1-2 DAYS. IT IS YOUR RESPONSIBILITY TO MAKE AN APPOINTMENT FOR FOLOW-UP CARE. IF YOU HAVE A PRIMARY DOCTOR --you should call your primary doctor and schedule an appointment IF YOU DO NOT HAVE A PRIMARY DOCTOR YOU CAN CALL OUR PHYSICIAN REFERRAL HOTLINE AT IF YOU CAN NOT AFFORD TO SEE A PHYSICIAN YOU CAN CHOSE FROM THE FOLLOWING [facility] [address] [facility] [address] [place] [address] [facility] [address] [facility] [address] [facility] [address] [facility]. [facility] [address] [facility]. [facility] YOU HAVE RECEIVED A MEDICAL SCREENING EXAM AND THE RESULTS INDICATE THAT YOU DO NOT HAVE A CONDITION THAT REQUIRES URGENT TREATMENT IN THE EMERGENCY DEPARTMENT. FURTHER EVALUATION AND TREATMENT OF YOUR CONDITION CAN WAIT UNTIL YOU ARE SEEN IN YOUR DOCTORS OFFICE WITHIN THE NEXT 1-2 DAYS. IT IS YOUR RESPONSIBILITY TO MAKE AN APPOINTMENT FOR FOLOW-UP CARE. IF YOU HAVE A PRIMARY DOCTOR --you should call your primary doctor and schedule and appointment IF YOU DO NOT HAVE A PRIMARY DOCTOR YOU CAN CALL OUR PHYSICIAN REFERRAL HOTLINE AT . IF YOU CAN NOT AFFORD TO SEE A PHYSICIAN YOU CAN CHOSE FROM THE FOLLOWING [facility] INSTITUTIONS: [facility] [address] [place] [address] [facility] [address] [place] [address] [facility] [address] [place] [address] Additional Instructions: Muchas kirsten por permitirnos participar en lock cuidado. Lock jane y seguridad es nuestra principal prioridad en [facility]. Es importante leer todas las instrucciones de dariel y la educacin que se proporcionan en lock paquete de dariel. Llame a lock mdico de atencin primaria MAANA para tanner cindy joaquín los prximos 2 a 4 hutchinson y lleve toda la informacin y los medicamentos recetados. Llene las recetas y siga exactamente las instrucciones de la etiqueta. -Naproxeno es un medicamento antiinflamatorio / para el dolor; tome janae medicamento diariamente segn lo prescrito para la prxima semana para ayudar con la hinchazn / inflamacin / dolor. -La prednisona es un esteroide, que disminuye la inflamacin; usa medicamentos cada maana con el desayuno para disminuir la inflamacin asociada con lock hombro El acetaminofeno es un medicamento para el dolor leve. [place] la medicacin segn sea necesario. Si los sntomas empeoran y lock proveedor no est disponible, regrese inmediatamente al Departamento de Emergencias. ----- Thank you very much for allowing us to participate in your care. Your health and safety is our top priority at [facility]. It is important to read all discharge instructions and education provided in your discharge packet. Call your primary care doctor TOMORROW for an appointment during the next 2-4 days and bring all the information and medications prescribed. Have prescriptions filled and follow precisely the directions on the label. -Naproxen is a anti-inflammatory/pain medication; take this medication daily as prescribed for the next week to help with swelling/inflammation/pain. -Prednisone is a steroid, which decreases inflammation; uses medication every morning with breakfast to decrease inflammation associated with your shoulder -acetaminophen is a medication for mild pain. Take medication as needed. - If the symptoms get worse and your provider is unavailable, return to the Emergency Department immediately. ANAT DAI NP Oct 14, 2018 09:40
== END 2018-10-13 19:10 | disposition home or self-care (01) ==
LOC: FTE 15:40
DX: S40.021A Contusion of right upper arm, initial encounter (principal); X58.XXXA Exposure to other specified factors, initial encounter; Y92.9 Unspecified place or not applicable
CPT/HCPCS: Z7502; Z7610; 99283

== ENCOUNTER 2018-12-20 11:37 | Emergency (ER) | payer MEDICAID ==
[~2018-12-20] VITALS: Ht 160 cm; Wt 72.0 kg
[~2018-12-20 11:37] MED LIST changes: +NAPR-985 PO; +PRED20TA PO
[2018-12-20 12:09] VITALS: BP 103/69; PULSE 76; RESP 18; Ht 160 cm; Wt 72.0 kg
[2018-12-20] MEDS ORDERED: FAMO-96 PO (12:38)
[2018-12-20] MEDS ORDERED: PSEU-79 PO (12:38)
[2018-12-20] MEDS ORDERED: LEVO5TAB28 PO (12:38)
[2018-12-20] MEDS ORDERED: AZIT250T PO (12:38)
--- NOTE | 2018-12-20 13:09 | ERD ---
ER Documentation Chief Complaint Chief Complaint sore throat x 1 month HPI 53-year-old female presenting with a sore throat and sinus congestion. She states she has itchy sore throat she also has a history of GERD and she feels some burning in the back of her throat. She states is been going for the last month she is been taking omeprazole and loratadine. Denies medical problems. NKDA. Surgical history hysterectomy. Social history denies ROS All systems reviewed and are negative except as per history of present illness. Medications Home Meds Active Scripts Azithromycin* (Zithromax*) 250 Mg Tablet, 250 MG PO .ZPACK DIRECTED, #6 TAB TAKE 500 MG (2 TABS) THE FIRST DAY THEN 250 MG (1 TAB) DAYS 2-5 Prov:AUDIE HUNTER PA-C 12/20/18 Pseudoephedrine Hcl* (Suphedrin*) 30 Mg Tablet, 30 MG PO Q6 PRN for CONGESTION, #30 TAB Prov:AUDIE HUNTER PA-C 12/20/18 Levocetirizine Dihydrochloride (Xyzal) 5 Mg Tablet, 5 MG PO QPM, #30 TAB Prov:AUDIE HUNTER PA-C 12/20/18 Famotidine* (Pepcid*) 20 Mg Tablet, 20 MG PO BID for 4 Days, #30 TAB Prov:AUDIE HUNTER PA-C 12/20/18 Prednisone* (Prednisone*) 20 Mg Tab, 40 MG PO WITH BREAKFAST for DECREASE INFLAMMATION for 5 Days, TAB Prov:ANAT DAI NP 10/13/18 Acetaminophen* (Tylophen*) 500 Mg Capsule, 2 CAP PO Q8H PRN for PAIN AND OR ELEVATED TEMP, #20 CAP Prov:ANAT DAI NP 10/13/18 Naproxen* (Naprosyn*) 500 Mg Tablet, 500 MG PO BID PRN for PAIN AND/OR INFLAMMATION, #30 TAB Prov:ANAT DAI NP 10/13/18 Acetaminophen* (Tylophen*) 500 Mg Capsule, 1 CAP PO Q6H PRN for PAIN AND OR ELEVATED TEMP, #15 CAP Prov:RONAL FRAIRE MD 06/04/18 Doxycycline Monohydrate* (Doxycycline Monohydrate*) 100 Mg Tablet, 100 MG PO BID for 7 Days, TAB Prov:RONAL FRAIRE MD 06/04/18 Acetaminophen* (Tylenol*) 500 Mg Tab, 1000 MG PO Q8 PRN for PAIN AND OR ELEVATED TEMP for 3 Days, TAB Prov:JAVIER CONDE Kaylen 06/23/17 Ibuprofen* (Ibuprofen*) 600 Mg Tablet, 600 MG PO Q6 for 3 Days, TAB Prov:JAVIER CONDE 06/23/17 Oseltamivir Phosphate* (Tamiflu*) 75 Mg Capsule, 75 MG PO BID for 5 Days, CAP Prov:AMAYAJAVIER Abdullahi 06/23/17 Cetirizine Hcl* (Zyrtec*) 10 Mg Capsule, 10 MG PO DAILY, #30 TAB.CHEW Prov:DERICK ALLEN NP 06/20/17 Cetirizine Hcl* (Zyrtec*) 10 Mg Capsule, 10 MG PO DAILY, #30 TAB.CHEW Prov:DERICK ALLEN NP 06/20/17 Guaifenesin-Codeine Phosphate* (Guaifenesin* AC Cough Syrup) 473 Ml Liquid, 10 ML PO Q4H PRN for COUGH, #120 ML Prov:DERICK ALLEN NP 06/20/17 Albuterol Sulfate* (Proair HFA*) 8.5 Gm Hfa.aer.ad, 2 PUFF INH Q4H PRN for WHEEZING AND SOB, #1 INHALER Prov:DERICK ALLEN NP 06/20/17 Polyethylene Glycol* (Miralax*) 17 Gm Powd.pack, 17 GM PO DAILY, #7 Prov:FERNANDO SAPP MD 11/11/16 Tramadol HCl (Tramadol HCl) 50 Mg Tablet, 50 MG PO Q6, #20 TAB Prov:FERNANDO SAPP MD 11/11/16 Allergies Allergies: Coded Allergies: No Known Allergy (Unverified , 12/17/16) PMhx/Soc History of Surgery: Yes (abdominal hysterectomy age 23) Anesthesia Reaction: No Hx Neurological Disorder: No Hx Respiratory Disorders: No Hx Cardiac Disorders: No Hx Psychiatric Problems: No Hx Miscellaneous Medical Probl: Yes (gastritis, ovarian cyst) Hx Alcohol Use: No Hx Substance Use: No Hx Tobacco Use: No FmHx Family History: No diabetes, No coronary disease, No other Physical Exam Vitals Vital Signs Date Temp Pulse Resp B/P (MAP) Pulse Ox O2 O2 Flow FiO2 Time Delivery Rate 12/20/18 97.9 76 18 103/69 96 12:09 (80) Physical Exam GENERAL: The patient is well-appearing, well-nourished, in no acute distress HEENT: Atraumatic. Conjunctivae are pink. Pupils equal, round, and reactive to light. There is no scleral icterus. Tympanic membranes clear bilaterally. Oropharynx clear. NECK: C-spine is soft and supple. There is no meningismus. There is no cervical lymphadenopathy. CHEST: Clear to auscultation bilaterally. There are no rales, wheezes or rhonchi. HEART: Regular rate and rhythm. No murmurs, clicks, rubs or gallops. Procedures/MDM MDM: 53-year-old female presenting with findings consistent with GERD and seasonal allergies. Patient is discharged with supportive medications. I will treat with antibiotics given she is had significant congestion over the last month. It is continuing. Patient is discharged with strict ER precautions. I do not feel there is indication for blood work or imaging. Patient is told symptoms change or worsen to return immediately to the ER. All questions answered at discharge Departure Diagnosis: Primary Impression: Sinusitis Condition: Stable Patient Instructions: Gerd (Adult), Sinusitis, Abx Tx Referrals: [facility] YOU HAVE RECEIVED A MEDICAL SCREENING EXAM AND THE RESULTS INDICATE THAT YOU DO NOT HAVE A CONDITION THAT REQUIRES URGENT TREATMENT IN THE EMERGENCY DEPARTMENT. FURTHER EVALUATION AND TREATMENT OF YOUR CONDITION CAN WAIT UNTIL YOU ARE SEEN IN YOUR DOCTORS OFFICE WITHIN THE NEXT 1-2 DAYS. IT IS YOUR RESPONSIBILITY TO MAKE AN APPOINTMENT FOR FOLOW-UP CARE. IF YOU HAVE A PRIMARY DOCTOR --you should call your primary doctor and schedule an appointment IF YOU DO NOT HAVE A PRIMARY DOCTOR YOU CAN CALL OUR PHYSICIAN REFERRAL HOTLINE AT IF YOU CAN NOT AFFORD TO SEE A PHYSICIAN YOU CAN CHOSE FROM THE FOLLOWING [facility] [address] [facility]. [facility] [address] [facility]. [facility] [address] [facility]. [facility] [address] [facility]. [place] [address] [facility]. [facility]. [address] Additional Instructions: FOLLOW UP WITH YOUR PRIMARY CARE PHYSICIAN TOMORROW.Return to this facility if you are not improving as expected. AUDIE HUNTER PA-C Dec 20, 2018 13:09
== END 2018-12-20 13:30 | disposition home or self-care (01) ==
LOC: FTE 11:37
DX: J32.9 Chronic sinusitis, unspecified (principal)
CPT/HCPCS: 99283

== ENCOUNTER 2018-12-23 17:32 | Emergency (ER) | payer MEDICAID ==
[~2018-12-23] VITALS: Ht 165.1 cm; Wt 72.2 kg
[~2018-12-23 17:32] MED LIST changes: +AZIT250T PO; +FAMO-96 PO; +LEVO5TAB28 PO; +PSEU-79 PO
[2018-12-23 17:37] VITALS: Ht 165.1 cm; Wt 72.2 kg
[2018-12-23] MEDS ORDERED: CEPH-443 PO (20:50)
[2018-12-23] MEDS ORDERED: IBUP-1542 PO (20:50)
--- NOTE | 2018-12-23 20:53 | ERD ---
ER Documentation Chief Complaint Chief Complaint PT c/o head, neck and back pain since taking Azithromycin and pepcid HPI Patient is a 53-year-old female presented to the ED for multiple complaints but she believes is associated with her taking azithromycin recently. Patient states that she stopped the antibiotic 2 days ago and since has been having abdominal pain and urinary symptoms. Patient denies any allergies to medications and states that she also has had a headache for the last couple days. Patient states the headache is a 6 out of 10 and has been constant. Patient denies any recent travels, any recent sick contacts, any blurry vision, fever chills night sweats. ROS All systems reviewed and are negative except as per history of present illness. Medications Home Meds Active Scripts Ibuprofen* (Motrin*) 600 Mg Tab, 600 MG PO Q6, #30 TAB Prov:SALMA JOHNSON PA-C 12/23/18 Cephalexin* (Keflex*) 500 Mg Capsule, 500 MG PO QID for 5 Days, CAP Prov:SALMA JOHNSON PA-C 12/23/18 Azithromycin* (Zithromax*) 250 Mg Tablet, 250 MG PO .ZPACK DIRECTED, #6 TAB TAKE 500 MG (2 TABS) THE FIRST DAY THEN 250 MG (1 TAB) DAYS 2-5 Prov:AUDIE HUNTER PA-C 12/20/18 Pseudoephedrine Hcl* (Suphedrin*) 30 Mg Tablet, 30 MG PO Q6 PRN for CONGESTION, #30 TAB Prov:AUDIE HUNTER PA-C 12/20/18 Levocetirizine Dihydrochloride (Xyzal) 5 Mg Tablet, 5 MG PO QPM, #30 TAB Prov:AUDIE HUNTER PA-C 12/20/18 Famotidine* (Pepcid*) 20 Mg Tablet, 20 MG PO BID for 4 Days, #30 TAB Prov:AUDIE HUNTER PA-C 12/20/18 Prednisone* (Prednisone*) 20 Mg Tab, 40 MG PO WITH BREAKFAST for DECREASE INFLAMMATION for 5 Days, TAB Prov:ANAT DAI NP 10/13/18 Acetaminophen* (Tylophen*) 500 Mg Capsule, 2 CAP PO Q8H PRN for PAIN AND OR ELEVATED TEMP, #20 CAP Prov:ANAT DAI NP 10/13/18 Naproxen* (Naprosyn*) 500 Mg Tablet, 500 MG PO BID PRN for PAIN AND/OR INFLAMMATION, #30 TAB Prov:ANAT DAI NP 10/13/18 Acetaminophen* (Tylophen*) 500 Mg Capsule, 1 CAP PO Q6H PRN for PAIN AND OR ELEVATED TEMP, #15 CAP Prov:RONAL FRAIRE MD 06/04/18 Doxycycline Monohydrate* (Doxycycline Monohydrate*) 100 Mg Tablet, 100 MG PO BID for 7 Days, TAB Prov:RONAL FRAIRE MD 06/04/18 Acetaminophen* (Tylenol*) 500 Mg Tab, 1000 MG PO Q8 PRN for PAIN AND OR ELEVATED TEMP for 3 Days, TAB Prov:JAVIER CONDE 06/23/17 Ibuprofen* (Ibuprofen*) 600 Mg Tablet, 600 MG PO Q6 for 3 Days, TAB Prov:JAVIER CONDE 06/23/17 Oseltamivir Phosphate* (Tamiflu*) 75 Mg Capsule, 75 MG PO BID for 5 Days, CAP Prov:JAVIER CONDE 06/23/17 Cetirizine Hcl* (Zyrtec*) 10 Mg Capsule, 10 MG PO DAILY, #30 TAB.CHEW Prov:DERICK ALLEN NP 06/20/17 Cetirizine Hcl* (Zyrtec*) 10 Mg Capsule, 10 MG PO DAILY, #30 TAB.CHEW Prov:DERICK ALLEN NP 06/20/17 Guaifenesin-Codeine Phosphate* (Guaifenesin* AC Cough Syrup) 473 Ml Liquid, 10 ML PO Q4H PRN for COUGH, #120 ML Prov:DERICK ALLEN NP 06/20/17 Albuterol Sulfate* (Proair HFA*) 8.5 Gm Hfa.aer.ad, 2 PUFF INH Q4H PRN for WHEEZING AND SOB, #1 INHALER Prov:DERICK ALLEN NP 06/20/17 Polyethylene Glycol* (Miralax*) 17 Gm Powd.pack, 17 GM PO DAILY, #7 Prov:FERNANDO SAPP MD 11/11/16 Tramadol HCl (Tramadol HCl) 50 Mg Tablet, 50 MG PO Q6, #20 TAB Prov:FERNANDO SAPP MD 11/11/16 Allergies Allergies: Coded Allergies: No Known Allergy (Unverified , 12/17/16) PMhx/Soc History of Surgery: Yes (abdominal hysterectomy age 23) Anesthesia Reaction: No Hx Neurological Disorder: No Hx Respiratory Disorders: No Hx Cardiac Disorders: No Hx Psychiatric Problems: No Hx Miscellaneous Medical Probl: Yes (gastritis, ovarian cyst) Hx Alcohol Use: No Hx Substance Use: No Hx Tobacco Use: No Smoking Status: Never smoker FmHx Family History: No diabetes, No coronary disease, No other Physical Exam Vitals Vital Signs Date Temp Pulse Resp B/P (MAP) Pulse Ox O2 O2 Flow FiO2 Time Delivery Rate 12/23/18 98.2 74 16 116/76 97 17:37 (89) Physical Exam Const: No acute distress Head: Atraumatic Eyes: Normal Conjunctiva ENT: Normal External Ears, Nose and Mouth. Neck: Full range of motion. No meningismus. Resp: Clear to auscultation bilaterally Cardio: Regular rate and rhythm, no murmurs Abd: Soft, non tender, non distended. Normal bowel sounds Skin: No petechiae or rashes Back: No midline or flank tenderness Ext: No cyanosis, or edema Neur: Awake and alert Psych: Normal Mood and Affect Results 24 hrs Laboratory Tests Test 12/23/18 19:45 12/23/18 19:49 Urine Color STRAW Urine Clarity CLEAR Urine pH 7.0 Urine Specific [place] 1.003 Urine Ketones NEGATIVE mg/dL Urine Nitrite NEGATIVE mg/dL Urine Bilirubin NEGATIVE mg/dL Urine Urobilinogen NEGATIVE mg/dL Urine Leukocyte Esterase 1+ Nathaniel/ul Urine Microscopic RBC 0 /HPF Urine Microscopic WBC 4 /HPF Urine Squamous Epithelial Cells FEW /HPF Urine Hemoglobin NEGATIVE mg/dL Urine Glucose NEGATIVE mg/dL Urine Total Protein NEGATIVE mg/dl Bedside Urine pH (LAB) 6.5 Bedside Urine Protein (LAB) Negative Bedside Urine Glucose (UA) Negative Bedside Urine Ketones (LAB) Negative Bedside Urine Blood Negative Bedside Urine Nitrite (LAB) Negative Bedside Urine Leukocyte Esterase (L 1+ Procedures/MDM ED course: UA The patient was stable throughout the ED course. The patient and/or family informed of laboratory and diagnostic imaging results throughout the ED course. Medications given in ER: None Medical decision making: Patient 53-year-old female presented to ED for multiple complaints. Patient's physical exam was unremarkable. Patient's UA was positive for leukocyte esterase. Patient is symptomatic with urinary symptoms and states that she thought she noticed a little blood in her urine the other day and she is having increase in frequency. Patient was recently treated with azithromycin but stated she was getting side effects and stopped taking the medication. Patient remained afebrile stable during her prior visit. Patient is being discharged with prescription for Keflex. At this time I have low suspicion for pneumonia, pyelonephritis, appendicitis, gallstones, sepsis,acute coronary syndrome, AAA, mesenteric ischemia, lower lobe pneumonia, DKA, bowel perforation, cholecystitis, choledocholithiasis, ascending cholangitis, hepatic abscess, pancreatitis, PUD, gastritis, GERD, splenic rupture, diverticulitis, nephrolithiasis, appendicitis, constipation, , ectopic , PID, ovarian torsion or tubo-ovarian abscess. Patient advised if symptoms worsen return to ER immediately. Otherwise follow-up with primary care provider in 1 to 2 days regarding this visit. Patient no further questions upon discharge and is agreement to the treatment plan Prescription for home: Keflex Motrin Discharge: At this time, patient is stable for discharge and outpatient management. I have instructed the patient to follow-up with his\her primary care physician in 1 to 2 days. I have discussed with the patient the possibility of needing to see a specialist for further work-up and imaging studies if symptoms persist. I have instructed the patient to promptly return to the ER for any new or worsening symptoms including increased pain, fever, nausea, vomiting, weakness or LOC. The patient and\or family expressed understanding of and agreement with this plan. All questions were answered. Home care instructions were provided. Disclaimer: Inadvertent spelling and grammatical errors are likely due to EHR\dictation software use and do not reflect on the overall quality of patient care. Also, please note that the electronic time recorded on the note does not necessarily reflect the actual time of the patient encounter. Departure Diagnosis: Primary Impression: UTI (urinary tract infection) Urinary tract infection type: site unspecified Hematuria presence: without hematuria Qualified Codes: N39.0 - Urinary tract infection, site not specified Condition: Stable Patient Instructions: Understanding Urinary Tract Infections (UTIs) Referrals: [facility] YOU HAVE RECEIVED A MEDICAL SCREENING EXAM AND THE RESULTS INDICATE THAT YOU DO NOT HAVE A CONDITION THAT REQUIRES URGENT TREATMENT IN THE EMERGENCY DEPARTMENT. FURTHER EVALUATION AND TREATMENT OF YOUR CONDITION CAN WAIT UNTIL YOU ARE SEEN IN YOUR DOCTORS OFFICE WITHIN THE NEXT 1-2 DAYS. IT IS YOUR RESPONSIBILITY TO MAKE AN APPOINTMENT FOR FOLOW-UP CARE. IF YOU HAVE A PRIMARY DOCTOR --you should call your primary doctor and schedule an appointment IF YOU DO NOT HAVE A PRIMARY DOCTOR YOU CAN CALL OUR PHYSICIAN REFERRAL HOTLINE AT IF YOU CAN NOT AFFORD TO SEE A PHYSICIAN YOU CAN CHOSE FROM THE FOLLOWING [facility] [address] [facility] [address] [facility] [facility] [address] [facility] [facility] [address] [facility] [address] [facility] [facility] [address] [facility] [address] [facility] YOU HAVE RECEIVED A MEDICAL SCREENING EXAM AND THE RESULTS INDICATE THAT YOU DO NOT HAVE A CONDITION THAT REQUIRES URGENT TREATMENT IN THE EMERGENCY DEPARTMENT. FURTHER EVALUATION AND TREATMENT OF YOUR CONDITION CAN WAIT UNTIL YOU ARE SEEN IN YOUR DOCTORS OFFICE WITHIN THE NEXT 1-2 DAYS. IT IS YOUR RESPONSIBILITY TO MAKE AN APPOINTMENT FOR FOLOW-UP CARE. IF YOU HAVE A PRIMARY DOCTOR --you should call your primary doctor and schedule and appointment IF YOU DO NOT HAVE A PRIMARY DOCTOR YOU CAN CALL OUR PHYSICIAN REFERRAL HOTLINE AT . IF YOU CAN NOT AFFORD TO SEE A PHYSICIAN YOU CAN CHOSE FROM THE FOLLOWING [facility]: [facility] [address] [place] [address] [facility] [address] [place] [address] [facility] [address] [place] [address] Additional Instructions: Llame al doctor MAANA y yair tanner DARI PARA DENTRO DE 2-3 LAN.Dgale a la secretaria que nosotros le instruimos hacer esta dari.Avise o llame si martinez condicin se empeora antes de la dari. Regresa aqui si peor o no mejor. SALMA JOHNSON PA-C Dec 23, 2018 20:53
[2018-12-23 21:06] VITALS: BP 117/74; PULSE 64; RESP 16
== END 2018-12-23 21:07 | disposition home or self-care (01) ==
LOC: FTE 17:32
DX: N39.0 Urinary tract infection, site not specified (principal)
CPT/HCPCS: 81001; Z7502; 81003; 99283